=== PATIENT | female | born 1955 | race Caucasian/White ===

== ENCOUNTER 2019-07-27 19:05 | Emergency (ER) | payer SELFPAY ==
[~2019-07-27] VITALS: Ht 170.1 cm; Wt 59.0 kg
[~2019-07-27 19:05] MED LIST: ACTOS30 MG PO; ASPI-COR81 M1 PO; BACTRIM DS 8001 TA1 PO; CIPROFLOXACIN500 MG PO; FENOFIBRATE67 MG PO; INSULIN; JANUMET 1000 MG1 TAB PO; KLONOPIN1 MG PO; LANTUS100 U/ML; NOVOLOG FLEX100 U/ML; PHENERGAN25 M1 PO; SYNTHROID,LEVOTHROID PO; TRAZADONE HYDR100 MG PO; TRICOR145 MG PO; VICO10300 PO; VICODIN ES 7501 TAB PO; ZOLOFT100 MG PO
[2019-07-27 21:00] VITALS: BP 121/87
[2019-07-27] MEDS ORDERED: VIBRAMYCIN100 MG PO (21:06)
== END 2019-07-27 21:29 | disposition home or self-care (01) ==
LOC: ED 19:05
DX: J40 Bronchitis, not specified as acute or chronic (principal); E11.9 Type 2 diabetes mellitus without complications; F17.200 Nicotine dependence, unspecified, uncomplicated; Z79.899 Other long term (current) drug therapy; Z79.82 Long term (current) use of aspirin; Z79.4 Long term (current) use of insulin

== ENCOUNTER 2020-10-18 19:20 | Observation (INO) | payer SELFPAY ==
[~2020-10-18] VITALS: Ht 170.1 cm; Wt 58.2 kg
[~2020-10-18 19:20] MED LIST changes: +VIBRAMYCIN100 MG PO
[2020-10-18 19:24] VITALS: BP 170/79
[2020-10-18 19:46] LABS: BASO # 0.1 10*3/uL (0.0-0.1); BASO % 0.8 % (0.0-1.0); EOS # 0.3 10*3/uL (0.0-0.4); HEMATOCRIT 39.8 % (37.0-47.0); LYMPH % 31.8 % (27.0-41.0); MEAN CELL VOLUME 83.1 fl (81.0-99.0); MEAN CORPUSCULAR HGB 27.3 pg (27.0-31.0); MEAN CORPUSCULAR HGB CONC 32.9 g/dl (33.0-37.0); MEAN PLATELET VOLUME 11.2 fl (9.6-12.3); MONO # 0.4 10*3/uL (0.1-1.0); MONO % 6.8 % (3.0-9.0); NEUT # 3.5 10*3/uL (2.3-7.9); NEUT % 55.4 % (47.0-73.0); PLATELET COUNT AUTOMATED 247 10*3/uL (130-400); RED BLOOD COUNT 4.79 10*6/uL (4.10-5.10); WHITE BLOOD COUNT 6.2 10*3/uL (4.8-10.8)
[2020-10-18 20:05] VITALS: BP 159/81
[2020-10-18 20:08] LABS: ALBUMIN 3.3 gm/dl (3.1-4.5); ALKALINE PHOSPHATASE 98 U/L (45-117); BUN 23 mg/dl (7-24); CHLORIDE 109 mmol/L (98-107); POTASSIUM 3.6 mmol/L (3.5-5.1); SGOT/AST 8 IU/L (3-35); SGPT/ALT 18 U/L (12-78); SODIUM 140 mmol/L (136-145); TOTAL PROTEIN 6.9 gm/dL (6.4-8.2)
[2020-10-18 20:09] LABS: TROPONIN I < 0.015 ng/ml (<0.045)
[2020-10-18 20:59] VITALS: BP 148/65
[2020-10-18] MEDS ORDERED: LANTUS SOL100 UNIT/1 SC (21:13)
[2020-10-18] MEDS ORDERED: NOVOLOG10 ML SC (21:14)
[2020-10-18] MEDS ORDERED: Synthroid,Lev150 MCG PO (22:06)
[2020-10-18 22:07] VITALS: BP 146/81
[2020-10-18 23:13] VITALS: BP 99/54
[2020-10-19 00:42] VITALS: BP 140/67
[2020-10-19 06:47] LABS: BASO # 0.1 10*3/uL (0.0-0.1); BASO % 0.7 % (0.0-1.0); EOS # 0.4 10*3/uL (0.0-0.4); EOS % 4.8 % (1.0-4.0); HEMATOCRIT 36.5 % (37.0-47.0); LYMPH # 2.1 10*3/uL (1.3-4.4); LYMPH % 27.4 % (27.0-41.0); MEAN CELL VOLUME 84.7 fl (81.0-99.0); MEAN CORPUSCULAR HGB 27.4 pg (27.0-31.0); MEAN CORPUSCULAR HGB CONC 32.3 g/dl (33.0-37.0); MEAN PLATELET VOLUME 10.7 fl (9.6-12.3); MONO # 0.5 10*3/uL (0.1-1.0); NEUT # 4.6 10*3/uL (2.3-7.9); NEUT % 60.8 % (47.0-73.0); PLATELET COUNT AUTOMATED 204 10*3/uL (130-400); RED BLOOD COUNT 4.31 10*6/uL (4.10-5.10); WHITE BLOOD COUNT 7.5 10*3/uL (4.8-10.8)
[2020-10-19 06:56] LABS: INTERNATIONAL NORM RATIO 0.9 (2.0-3.5)
[2020-10-19 07:34] LABS: CHLORIDE 115 mmol/L (98-107); POTASSIUM 3.9 mmol/L (3.5-5.1); SODIUM 143 mmol/L (136-145)
[2020-10-19 07:48] LABS: ALBUMIN 2.9 gm/dl (3.1-4.5); ALKALINE PHOSPHATASE 77 U/L (45-117); BUN 17 mg/dl (7-24); CHOLESTEROL 161 mg/dL (<200); CREATININE 0.71 mg/dL (0.55-1.02); HDL CHOLESTEROL 32 mg/dl (40-60); LDL CHOLESTEROL 50 mg/dL (9-159); SGOT/AST 7 IU/L (3-35); SGPT/ALT 15 U/L (12-78); TRIGLYCERIDES 393 mg/dl (<150); VLDL CHOLESTEROL 79 mg/dL (6-40)
[2020-10-19 08:00] VITALS: BP 121/67
[2020-10-19 12:00] VITALS: BP 121/87
[2020-10-19 14:18] LABS: VITAMIN D, 25-HYDROXY 25.7 ng/mL (30-100)
[2020-10-19] MEDS ORDERED: MECLIZINE HYD12.5 MG PO (15:24)
== END 2020-10-19 16:04 | disposition home or self-care (01) ==
LOC: ED 19:20 → EDHOLD 21:05 → 5E 10-19 00:23
PROVIDERS: Student in an Organized Health Care Education/Training Program; ADMIT Internal Medicine; ATTEND Internal Medicine
DX: R42 Dizziness and giddiness (principal); H83.09 Labyrinthitis, unspecified ear; E11.65 Type 2 diabetes mellitus with hyperglycemia; E03.9 Hypothyroidism, unspecified; E87.8 Other disorders of electrolyte and fluid balance, not elsewhere classified; E44.1 Mild protein-calorie malnutrition; R03.0 Elevated blood-pressure reading, without diagnosis of hypertension; E78.5 Hyperlipidemia, unspecified; F17.210 Nicotine dependence, cigarettes, uncomplicated

== ENCOUNTER 2022-05-19 15:00 | Emergency (ER) | payer MEDICARE ==
[~2022-05-19] VITALS: Ht 170.1 cm; Wt 56.7 kg
[~2022-05-19 15:00] MED LIST changes: +LANTUS SOL100 UNIT/1 SC; +MECLIZINE HYD12.5 MG PO; +NOVOLOG10 ML SC; +Synthroid,Lev150 MCG PO
[2022-05-19 15:17] VITALS: BP 133/70
[2022-05-19 15:29] LABS: BASO % 0.5 % (0.0-1.0); EOS # 0.1 10*3/uL (0.0-0.4); EOS % 1.3 % (1.0-4.0); HEMATOCRIT 36.6 % (37.0-47.0); LYMPH # 1.7 10*3/uL (1.3-4.4); LYMPH % 22.5 % (27.0-41.0); MEAN CELL VOLUME 81.2 fl (81.0-99.0); MEAN CORPUSCULAR HGB 27.1 pg (27.0-31.0); MEAN CORPUSCULAR HGB CONC 33.3 g/dl (33.0-37.0); MEAN PLATELET VOLUME 9.8 fl (9.6-12.3); MONO # 0.5 10*3/uL (0.1-1.0); MONO % 6.1 % (3.0-9.0); NEUT # 5.3 10*3/uL (2.3-7.9); NEUT % 69.3 % (47.0-73.0); PLATELET COUNT AUTOMATED 224 10*3/uL (130-400); RED BLOOD COUNT 4.51 10*6/uL (4.10-5.10); RED CELL DISTRI WIDTH 13.2 % (0-14.5); WHITE BLOOD COUNT 7.7 10*3/uL (4.8-10.8)
[2022-05-19 15:42] LABS: ACT PARTIAL THROMBO TIME 25.6 SECONDS (20.0-32.1); INTERNATIONAL NORM RATIO 0.9 (2.0-3.5)
[2022-05-19 15:48] LABS: ALKALINE PHOSPHATASE 106 U/L (45-117); BUN 15 mg/dl (7-24); CHLORIDE 106 mmol/L (98-107); CREATININE 0.78 mg/dL (0.55-1.02); LIPASE 96 U/L (73-393); POTASSIUM 3.6 mmol/L (3.5-5.1); SGOT/AST 5 IU/L (3-35); SGPT/ALT 27 U/L (12-78); SODIUM 137 mmol/L (136-145); TOTAL PROTEIN 6.9 gm/dL (6.4-8.2)
[2022-05-19 18:41] LABS: BILIRUBIN Negative (Negative); BLOOD 3+ (Negative); COLOR Yellow (Yellow); GLUCOSE 3+ (Negative); KETONE Negative (Negative); LEUKO ESTERASE 2+ (Negative); NITRITE Positive (Negative); PH 5.5 (4.5-8.0); SPECIFIC GRAVITY >= 1.030 (1.001-1.030); UROBILINOGEN 0.2 E.U./dl (0.0-1.0)
[2022-05-19 18:48] LABS: CLARITY Cloudy (Clear)
[2022-05-19 18:49] LABS: BACTERIA 3+; RBC TNTC rbc/hpf (0-2); WBC TNTC wbc/hpf (0-5)
[2022-05-19] MEDS ORDERED: CEFUROXIME AXE500 MG PO (21:15)
[2022-05-19] MEDS ORDERED: MIRALAX119 GM PO (21:15)
== END 2022-05-19 21:28 | disposition home or self-care (01) ==
LOC: ED 15:00
PROVIDERS: Nurse Practitioner Family
DX: N12 Tubulo-interstitial nephritis, not specified as acute or chronic (principal); Z79.899 Other long term (current) drug therapy; Z79.82 Long term (current) use of aspirin; Z90.49 Acquired absence of other specified parts of digestive tract; Z90.710 Acquired absence of both cervix and uterus; Z98.890 Other specified postprocedural states; Z98.51 Tubal ligation status; Z87.891 Personal history of nicotine dependence